=== PATIENT | female | born 1950 | race Caucasian/White ===

== ENCOUNTER 2022-02-06 00:05 | Emergency (ER) | payer MEDICARE, BC ==
[2022-02-06 01:01] LABS: ESTIMATED GFR 42 mL/min (>60); TROPONIN I HIGH SENSITIVITY 9.9 pg/ml (<=60.4)
[2022-02-06] MEDS ORDERED: Aspirin 81 MG Tab.Chew PO ONE (01:27)
== END 2022-02-06 10:00 | disposition home or self-care (01) ==
LOC: LB.ED 00:05
DX: R07.89 Other chest pain (principal); Z79.82 Long term (current) use of aspirin; Z79.899 Other long term (current) drug therapy
CPT/HCPCS: 36415; 71045; 80053; 84484; 85025; 85610; 93005; 99285; A0425; A0429; A9270; 93010; 99283